=== PATIENT | male | born 1995 | race Caucasian/White ===

== ENCOUNTER 2016-03-10 00:14 | Emergency (ER) | payer OTHER ==
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
[2016-03-10 01:11] VITALS: BP 118/58
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
== END 2016-03-10 01:10 | disposition home or self-care (01) ==
LOC: ED 00:14
DX: R07.9 Chest pain, unspecified (principal); F17.210 Nicotine dependence, cigarettes, uncomplicated
CPT/HCPCS: 71101; 99283

== ENCOUNTER 2016-03-19 01:14 | Emergency (ER) | payer OTHER ==
[2016-03-19] MEDS ORDERED: traMADol HCL 50 MG TABLET PO ONE (02:02)
[2016-03-19] MEDS ORDERED: traMADol HCL 50 MG TABLET ONE (02:03)
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
[2016-03-19 02:13] VITALS: BP 101/58
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
== END 2016-03-19 02:12 | disposition home or self-care (01) ==
LOC: EDBD 01:14 → ED 01:14
DX: S00.83XA Contusion of other part of head, initial encounter (principal); F17.210 Nicotine dependence, cigarettes, uncomplicated; X58.XXXA Exposure to other specified factors, initial encounter; Y93.9 Activity, unspecified; Y99.9 Unspecified external cause status
CPT/HCPCS: 70150; 99282